=== PATIENT | male | born 1995 | race Caucasian/White ===

== ENCOUNTER 2019-11-18 12:16 | Emergency (ER) | payer SELFPAY ==
[2019-11-18 12:36] VITALS: BP 133/79; PULSE 66; RESP 16; TEMP 36.7
--- NOTE | 2019-11-18 12:39 | ED.SKABFB ---
HPI - Skin/Abscess/Foreign Bdy General Chief complaint: Skin/Abscess/Foreign Body Stated complaint: rash History of Present Illness HPI narrative: This is a 24-year-old male comes him because of the rash on his left arm close to his elbow states that approximately a week ago itch but now it no longer itches just red and there sometimes he bumps it and notices. Nobody else in the house has a rash there are moments that itches Related Data Allergies Allergy/AdvReac Type Severity Reaction Status Date / Time pertussis vaccine,adsorbed Allergy Unknown Unknown Unverified 11/18/19 12:38 Review of Systems Review of Systems: Narrative: CONSTITUTIONAL: Denies fever, chills, or sweats. EYES: Denies visual changes, redness, or discharge. ENT: Denies rhinorrhea, congestion, sore throat, or otalgia. CARDIOVASCULAR:Denies chest pain, palpitations, or edema. RESPIRATORY: Denies cough or dyspnea. GASTROINTESTINAL: Denies abdominal pain, nausea, vomiting, or diarrhea. GENITOURINARY: Denies dysuria or hematuria. SKIN: Reports rash or itching left elbow area MUSCULOSKELETAL:Denies back pain, joint pain, or myalgia. NEUROLOGIC: Denies headache, numbness, or weakness. PSYCHIATRIC:Denies anxiety or depression PMFSH Comments At time as signature, I have reviewed and agree with nursing past medical, social, surgical and family history. Please see nursing chart for further information. There is no relevant family history pertinent to the presenting complaint. Exam Narrative: Exam Narrative: GENERAL:Well-appearing, well-nourished, and in no acute distress. HEAD:Normocephalic, atraumatic. EYES: PERRLA and EOMI. ENT: Nares clear, no rhinorrhea or epistaxis. Mucous membranes moist. NECK: Supple. CHEST: Clear to auscultation. No respiratory distress. HEART: Regular rate and rhythm. No murmur heard. Normal peripheral pulses. ABDOMEN: Soft, nontender, nondistended, normal active bowel sounds. EXTREMITIES: Normal range of motion. No edema. SKIN: Warm, dry, red erythema pinpoint rash denies itching although intermittently may itch on left elbow area. NEURO: No focal deficits. Alert and oriented x3. Course Vital Signs Vital signs: Vital Signs Temperature 98.0 F 11/18/19 12:36 Pulse Rate 66 11/18/19 12:36 Respiratory Rate 16 11/18/19 12:36 Blood Pressure 133/79 11/18/19 12:36 Temperature 98.0 F 11/18/19 12:36 Pulse Rate 66 11/18/19 12:36 Respiratory Rate 16 11/18/19 12:36 Blood Pressure 133/79 11/18/19 12:36 Discharge Plan Discharge Clinical Impression: Folliculitis AD (atopic dermatitis) Qualifiers: Atopic dermatitis type: unspecified Qualified Code(s): L20.9 - Atopic dermatitis, unspecified Patient Disposition: Home, Self-Care Condition: Stable Instructions: Antibiotic Form, Folliculitis (ED), Dermatitis (ED) Prescriptions: New cephalexin [Keflex] 500 mg capsule 500 mg PO Q12H 10 Days Qty: 20 RF: 0 methylprednisolone [Medrol (Billy)] 4 mg tablets,dose pack See Rx Instructions .ROUTE .COMPLEX Qty: 21 RF: 0 Follow-up/Referrals: Clifton,BRANDON Yoder [Primary Care Provider] - Time of Disposition: 12:42 Discharge Date/Time: 11/18/19 12:42
== END 2019-11-18 12:42 | disposition home or self-care (01) ==
PROVIDERS: Emergency Provider Nurse Practitioner Family; PCP Nurse Practitioner Family
DX: L73.9 Follicular disorder, unspecified (principal); L20.9 Atopic dermatitis, unspecified
CPT/HCPCS: 99203; G0463